=== PATIENT | female | born 1950 | race Caucasian/White ===

== ENCOUNTER → 2017-01-08 | Outpatient (CLI) | payer OTHER ==
--- NOTE | 2017-01-08 13:22 | RAD ---
Routine screening mammogram Indication: 66-year-old female for routine screening mammography. Technique: 2-D and 3-D mammogram of the bilateral breasts performed. Comparison: None Findings: The breasts are heterogeneously dense which may obscure small masses. There is a oval-shaped lesion with indistinct margin within the lateral aspect of the left breast approximately 7 cm from the nipple along the posterior nipple line. Second similar lesion is seen anterior to this lesion measuring 1.3 x 1.1 cm seen on 3-D views. 4 mm oval-shaped circumscribed lesion within the upper outer right breast approximately 8 cm from the nipple. Few similar other oval-shaped lesions are seen within the right breast. No suspicious calcifications or spiculated mass. Impression: Bilateral multiple oval-shaped masses most likely represent cysts. A ultrasound of the dominant left breast lesion is recommended for confirmation. If the ultrasound findings are compatible with simple cyst and no further workup needed. BI-RADS 0: Incomplete. PQRS compliance statement: Patient information was entered into a reminder system with a target due date target date for the next mammogram. Mammography is a sensitive method for finding small breast cancers, but it does not detect them all and is not a substitute for careful clinical examination. A negative mammogram does not negate a clinically suspicious finding and should not result in delay in biopsying a clinically suspicious abnormality. "Our facility is accredited by the [employer] Mammography [employer]." GILBERTD
== END | disposition home or self-care (01) ==
LOC: MAMMO 07:40
PROVIDERS: ATTEND Nurse Practitioner
DX: Z12.31 Encounter for screening mammogram for malignant neoplasm of breast (principal)
CPT/HCPCS: 77063; G0202; 77067

== ENCOUNTER → 2017-01-10 | Outpatient (CLI) | payer OTHER ==
--- NOTE | 2017-01-10 12:31 | RAD ---
Ultrasound of the left breast Indication: Abnormal mammogram Technique: Grayscale and color Doppler ultrasound images of the left breast obtained. Comparison: Prior mammogram from 01/08/2017 Findings: Multiple well-circumscribed anechoic cysts are seen in the breast, the largest measuring 2.9 x 1.8 x 1.1 cm at 3:00 position. No mural nodularity, internal septations or internal blood flow. Impression: Multiple simple cysts. No suspicious findings. BI-RADS 2: Benign.
== END | disposition home or self-care (01) ==
LOC: US 10:18
PROVIDERS: ATTEND Nurse Practitioner
DX: R92.8 Other abnormal and inconclusive findings on diagnostic imaging of breast (principal); N60.02 Solitary cyst of left breast
CPT/HCPCS: 76641